=== PATIENT | female | born 1940 | race Caucasian/White ===

== ENCOUNTER → 2017-02-14 | Outpatient (CLI) | payer OTHER ==
[2015-08-25 08:16] VITALS: BP 141/63
--- NOTE | 2017-02-14 13:06 | NM ---
HISTORY: Abdominal pain. Clinical concern for gastroparesis/gastric emptying disorder. Nuclear medicine gastric emptying study. Findings: For the purposes of this gastric emptying study, 0.5 mCi of technetium 99m colloid was labeled to fo od and administered to the patient, orally. The patient was imaged in the supine position, and image s were obtained sequentially to evaluate gastric imaging. Regions of interest were selected over the stomach as well as over appropriate background regions prior to calculating the gastric emptying awad lf-time curve. Imaging was taken out to 90 minutes. The gastric emptying half time for this procedur e, as calculated, was within normal limits (as the normal half-life ranges between 45 and 110 minute s, depending on the specific nuclear medicine laboratory standards). No radiotracer gastroesophageal reflux was identified on this examination. IMPRESSION: Normal gastric emptying half-time of 69 minutes. Reported By:
== END ==
LOC: RAD 09:04
PROVIDERS: ATTEND Internal Medicine Gastroenterology
DX: R11.0 Nausea (principal); R10.13 Epigastric pain
CPT/HCPCS: 78264

== ENCOUNTER 2017-02-20 09:15 | Day surgery (SDC) | payer OTHER ==
[2017-02-20] MEDS ORDERED: D5 LR 1000 ML 1,000 ML IV ONE (09:23)
[2017-02-20] MEDS ORDERED: DIPRIVAN VIAL 20 ML ONE (10:50)
[2017-02-20 11:28] VITALS: BP 120/72
== END 2017-02-20 11:26 | disposition home or self-care (01) ==
LOC: SURG1 09:15
PROVIDERS: ATTEND Internal Medicine Gastroenterology
PROC: 0DJ08ZZ Inspection of Upper Intestinal Tract, Via Natural or Artificial Opening Endoscopic (ICD-10-PCS; principal; 2017-02-20 11:15)
PROC: 0DB68ZX Excision of Stomach, Via Natural or Artificial Opening Endoscopic, Diagnostic (ICD-10-PCS; principal; 2017-02-20 11:15)
PROC: 0DB88ZX Excision of Small Intestine, Via Natural or Artificial Opening Endoscopic, Diagnostic (ICD-10-PCS; principal; 2017-02-20 11:15)
DX: R10.13 Epigastric pain (principal); K21.9 Gastro-esophageal reflux disease without esophagitis; R11.0 Nausea; K20.8 Other esophagitis; K44.9 Diaphragmatic hernia without obstruction or gangrene; K29.60 Other gastritis without bleeding
CPT/HCPCS: 99100; A4217; J3490; J7120

== ENCOUNTER → 2017-03-21 | Outpatient (CLI) | payer OTHER ==
[2017-02-20 11:28] VITALS: BP 120/72
--- NOTE | 2017-03-21 13:43 | MRI ---
STUDY: MRI OF THE BRAIN WITHOUT GADOLINIUM HISTORY: Buenrostro's palsy. Technique: Multiplanar multi-sequence MRI of the brain was obtained utilizing standard departmental p rotocol. Sagittal and axial T1, axial T2, FLAIR, diffusion (DWI/ADC) images through the brain were pe rformed. Comparison: Brain MRI from December 22, 2015. Findings: The sulci, cisterns and ventricles are prominent consistent with diffuse volume loss. There are confl uent and scattered foci of T2 prolongation in the periventricular and subcortical white matter of bot h hemispheres. This is a nonspecific finding which likely represents microangiopathic change in a pat ient of this age. There is superior cerebellar tonsillar ectopia below the level of the foramen magnum, with tonsillar beaking and crowding. 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 There is no evidence of acute territorial infarction, hemorrhage, mass, mass eff ect, or midline shift. There are no abnormal intra-axial or extra-axial fluid collections. The major intracranial vascular flow voids appear intact. The left vertebral artery appears dominant. IMPRESSION: 1. No evidence of acute intracranial abnormality. 2. 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 3. Nonspecific white matter change and volume loss. Reported By:
== END | disposition home or self-care (01) | DRG 74 ==
LOC: RAD 10:41
PROVIDERS: ATTEND Psychiatry & Neurology Neurology
DX: G51.0 Bell's palsy (principal); Q04.8 Other specified congenital malformations of brain
CPT/HCPCS: 70551